=== PATIENT | female | born 1950 | race Caucasian/White ===

== ENCOUNTER 2022-12-31 09:03 | Day surgery (SDC) | payer MEDICARE, OTHER, SELFPAY ==
[2022-12-24 10:54] VITALS: BMI 27.2
--- NOTE | 2022-12-28 07:47 | MHC.SHP ---
Pre-Procedural Eval Section A Date of Service: 12/28/22 The patient is an INPATIENT: No Changes since office visit: No Cold of Flu in the past 2 weeks, No New Medical Problems, No Changes in Medication and No Patient answered all questions The History & Physical has been completed within 30 days and I have reviewed it.: Yes Section B Chief Complaint: Age-related nuclear cataract, right eye Allergies: Allergies Allergy/AdvReac Type Severity Reaction Status Date / Time No Known Allergies Allergy Verified 12/24/22 10:46 Plan Diagnosis/Plan: Unchanged I have reviewed the history and physical and performed a pertinent physical examination on my patient. No changes have occurred unless specified. Time Spent With Patient Time: Total time managing care of this patient today ____ minutes.
[2022-12-31 09:27] VITALS: BP 154/78; PULSE 83; RESP 18; TEMP 36.7; O2SAT 97
[2022-12-31] MEDS: Lactated Ringers 500 ML 50 ML IVCONT (09:44)
[2022-12-31] MEDS: Tropicamide 1 % Ophth Sol 3 ML BTL 1 DROP EYE-RIGHT ×3 (09:45→09:51)
[2022-12-31] MEDS: Cyclopentolate 1 % Ophth Sol 2 ML DRPBTL 1 DROP EYE-RIGHT ×3 (09:45→09:51)
[2022-12-31] MEDS: Tetracaine HCl/PF 0.5% Oph Sol 4 ML DROPS 1 DROP EYE-RIGHT (09:45)
[2022-12-31] MEDS: Phenylephrine HCL 2.5% Oph SoL 2 ML BOTTLE 1 DROP EYE-RIGHT ×3 (09:45→09:51)
[2022-12-31] MEDS: Ketorolac Tromethamine 0.5% Op 5 ML DROPS 1 DROP EYE-RIGHT ×3 (09:45→09:51)
--- NOTE | 2022-12-31 09:58 | HO.ANESPROP2 ---
[facility] Past Medical History Medical History GERD (gastroesophageal reflux disease) HTN (hypertension) Functional capacity: uses cane/walker Surgical History Surgical History Hx of hysterectomy H/O colonoscopy History of Problems with Anesthesia: No Social History Social History Are you a primary regular senior care provider to a significant other at home: No Do you presently have visiting nurse or other home services: No Patient Tobacco Use Status: Never used Tobacco Use of substances other than those prescribed or required for medical reasons: No Have you been hit, kicked, punched, or otherwise hurt by someone within the past year? If so, by whom?: No Advance Directives: No Advance Directives Information Provided: Yes Advance Directives on File: No Recently lost weight without trying: No Eating poorly because of decreased appetite: No Nutrition Risks: No Nutritional Risk Patient : No : No Poor oral hygiene: No Meds Allergies Allergy/AdvReac Type Severity Reaction Status Date / Time No Known Allergies Allergy Verified 12/24/22 10:46 Active Medications: Current Medications Lactated Ringer's (Lr) 500 mls @ 50 mls/hr IVCONT .Q10H JUANA Last Admin: 12/31/22 09:44 Dose: 50 mls/hr Povidone Iodine (Povidone Iodine 5 % Ophth Soln 30 Ml Bottle) 1 appl EYE-RIGHT PREOP PRN PRN Reason: Pre-Op Surgical Implant Prophy Home Medications Medication Instructions Recorded Confirmed Last Taken Type Al hyd-Mg tr-alg ac-sod bicarb 80 1 tab PO DAILY PRN Heartburn 12/24/22 12/24/22 Unknown History mg-14.2 mg chewable tablet (Gaviscon) cranberry extract 650 mg capsule 650 mg PO DAILY 12/24/22 12/24/22 Unknown History enalapril 10 1 tab PO DAILY 12/24/22 12/24/22 Unknown History mg-hydrochlorothiazide 25 mg tablet multivitamin 1 tab PO DAILY 12/24/22 12/24/22 Unknown History omeprazole 20 mg tablet,delayed 20 mg PO DAILY PRN Heartburn 12/24/22 12/24/22 Unknown History release Exam Exam Date and Time: December 31, 2022 0958 Height,Weight and Vital Signs: Height 5 ft 8 in Weight 81.193 kg Last Vital Signs Temp 98.1 F 12/31/22 09:27 Pulse 83 12/31/22 09:27 Resp 18 12/31/22 09:27 BP 154/78 H 12/31/22 09:27 Pulse Ox 97 12/31/22 09:27 O2 Del Method Room Air 12/31/22 09:27 Airway Mallampati Class: III TM Dist: >3cm Neck ROM: Full Loose/Missing/Broken Teeth: No Heart: RRR Lungs: CTA Assessment and Plan Assessment Anesthesia Assessment: Anesthesia Plan Discussed and Chart Reviewed Final Anesthetic Review History of Problems with Anesthesia: No NPO: Yes ASA Class: II Final Preanesthetic Review: Meds/Allgs Chart Reviewed, Consent Obtained/Reviewed and Anes Risks/Benef Reviewed Patient Risk: Low Procedure Risk: Low Anesthetic Plan Anesthetic Plan: MAC: Disposition: Standard PACU
--- NOTE | 2022-12-31 12:16 | HO.PNOPHT ---
Ophthalmology Procedure Procedure Date of Service: 12/31/22 Ophthalmology Viscoelastic: Salvatore Perduet Dual Pack Pro Ophthalmology Lenses: DXR 7.5 Procedure Notes: PREOPERATIVE DIAGNOSIS: Decreased visual acuity right eye secondary to cataract POSTOPERATIVE DIAGNOSIS: Same PROCEDURE: Right cataract extraction with multifocal intraocular lens insertion SURGEON: Kristian Sandhu M.D. ANESTHESIA: Topical/MAC ESTIMATED BLOOD LOSS: None COMPLICATIONS: None After obtaining informed consent, the patient was brought to the operating room suite and placed in the supine position. After adequate sedation per anesthesia, topical drops of Tetracaine were given to the right eye. The eye was then prepped and draped in the usual sterile fashion. The operating room microscope was then positioned over the operative eye and a lid speculum placed. A paracentesis was created. Viscoelastic was then instilled into the anterior chamber. A three plane incision was then created temporally, utilizing a 2.85 mm keratome. Capsulotomy forceps were then utilized to create a circular tear capsulotomy. Hydrodissection and hydrodelineation were carried out until adequate mobilization of the nucleus occurred. Phacoemulsification was then utilized to remove the dense central nucleus followed by removal of the cortical material utilizing the automated aspiration irrigation unit. Viscoelastic was instilled into the posterior capsular bag followed by placement of a multifocal posterior chamber intraocular lens without difficulty. The residual Viscoelastic was then removed utilizing the automated IA machine. The wound was checked and found to be watertight. The patient tolerated the procedure well and the lid speculum was removed. Intracameral injection of Vigamox 0.1 mL followed by a subtenon injection of Kenalog-40 0.2 mL were administered. The patient will be seen in the a.m.
[2022-12-31 12:31] VITALS: BP 133/78; PULSE 86; RESP 20; TEMP 36.2; O2SAT 96
== END 2022-12-31 12:30 | disposition home or self-care (01) ==
PROVIDERS: PCP Family Medicine; Visit Provider Ophthalmology
PROC: (CPT 66984; principal; 2022-12-31 12:00)
DX: H25.11 Age-related nuclear cataract, right eye (principal); H52.4 Presbyopia; H40.013 Open angle with borderline findings, low risk, bilateral; H43.393 Other vitreous opacities, bilateral; H18.413 Arcus senilis, bilateral; H35.09 Other intraretinal microvascular abnormalities; I10 Essential (primary) hypertension; Z79.899 Other long term (current) drug therapy; Z87.891 Personal history of nicotine dependence
CPT/HCPCS: 66984; J2250; J3010; J3301; V2788

== ENCOUNTER 2023-01-14 06:59 | Day surgery (SDC) | payer MEDICARE, OTHER, SELFPAY ==
[2022-12-24 11:04] VITALS: BMI 27.2
--- NOTE | 2023-01-08 14:15 | P.CONAN_ITS ---
Documented by User: Kinjal Mckeon NP 01/08/23 14:16 HPI - Anesthesia Eval Consult details Narrative: 72yo F for Left Cataract Extraction IOL Insertion Medically optimized Right eye 12/31/2022: Fent 50, Midaz 1 PMFSH Past Medical History Medical History GERD (gastroesophageal reflux disease) HTN (hypertension) Surgical History Surgical History Hx of hysterectomy H/O colonoscopy History of Problems with Anesthesia: No Social History Are you a primary health care facilities inspector to a significant other at home: No Do you presently have visiting nurse or other home services: No Patient Tobacco Use Status: Never used Tobacco Use of substances other than those prescribed or required for medical reasons: No Have you been hit, kicked, punched, or otherwise hurt by someone within the past year? If so, by whom?: No Advance Directives: No Advance Directives Information Provided: Yes Advance Directives on File: No Recently lost weight without trying: No Eating poorly because of decreased appetite: No Nutrition Risks: No Nutritional Risk Patient : No : No Poor oral hygiene: No Meds Allergies Allergy/AdvReac Type Severity Reaction Status Date / Time No Known Allergies Allergy Verified 01/14/23 08:21 Home Medications Medication Instructions Recorded Confirmed Last Taken Type Al hyd-Mg tr-alg ac-sod bicarb 80 1 tab PO DAILY PRN Heartburn 12/24/22 12/24/22 Unknown History mg-14.2 mg chewable tablet (Gaviscon) cranberry extract 650 mg capsule 650 mg PO DAILY 12/24/22 12/24/22 Unknown History enalapril 10 1 tab PO DAILY 12/24/22 12/24/22 Unknown History mg-hydrochlorothiazide 25 mg tablet multivitamin 1 tab PO DAILY 12/24/22 12/24/22 Unknown History omeprazole 20 mg tablet,delayed 20 mg PO DAILY PRN Heartburn 12/24/22 12/24/22 Unknown History release Exam Height,Weight and Vital Signs: Height 5 ft 8 in Weight 81.193 kg Assessment and Plan Assessment Anesthesia Assessment: Chart Reviewed Final Anesthetic Review History of Problems with Anesthesia: No Documented by User: Harsha Joseph MD 01/14/23 08:56 PMF Past Medical History Medical History GERD (gastroesophageal reflux disease) HTN (hypertension) Family History Family history of problems with anesthesia: No Surgical History Surgical History Hx of hysterectomy H/O colonoscopy Social History Are you a primary health care facilities inspector to a significant other at home: No Do you presently have visiting nurse or other home services: No Patient Tobacco Use Status: Never used Tobacco Use of substances other than those prescribed or required for medical reasons: No Have you been hit, kicked, punched, or otherwise hurt by someone within the past year? If so, by whom?: No Advance Directives: No Advance Directives Information Provided: Yes Advance Directives on File: No Recently lost weight without trying: No Eating poorly because of decreased appetite: No Nutrition Risks: No Nutritional Risk Patient : No : No Poor oral hygiene: No Meds Allergies Allergy/AdvReac Type Severity Reaction Status Date / Time No Known Allergies Allergy Verified 01/14/23 08:21 Home Medications Medication Instructions Recorded Confirmed Last Taken Type Al hyd-Mg tr-alg ac-sod bicarb 80 1 tab PO DAILY PRN Heartburn 12/24/22 12/24/22 Unknown History mg-14.2 mg chewable tablet (Gaviscon) cranberry extract 650 mg capsule 650 mg PO DAILY 12/24/22 12/24/22 Unknown History enalapril 10 1 tab PO DAILY 12/24/22 12/24/22 Unknown History mg-hydrochlorothiazide 25 mg tablet multivitamin 1 tab PO DAILY 12/24/22 12/24/22 Unknown History omeprazole 20 mg tablet,delayed 20 mg PO DAILY PRN Heartburn 12/24/22 12/24/22 Unknown History release Exam Airway Mallampati Class: II TM Dist: >3cm Neck ROM: Limited Heart: cta Lungs: rrr Assessment and Plan Assessment Anesthesia Assessment: Anesthesia Plan Discussed Final Anesthetic Review Family History of Problems with Anesthesia: No NPO: Yes ASA Class: II Final Preanesthetic Review: No Changes in Pt Med Stat, Consent Obtained/Reviewed and Anes Risks/Benef Reviewed Patient Risk: Intermediate Procedure Risk: Low Anesthetic Plan Anesthetic Plan: MAC: and Agree w/ Assess. and Plan Disposition: Standard PACU
[2023-01-14 08:20] VITALS: BP 147/83; PULSE 75; RESP 16; TEMP 36.3; O2SAT 95
--- NOTE | 2023-01-14 09:11 | HO.PNOPHT ---
Ophthalmology Procedure Procedure Date of Service: 01/14/23 Ophthalmology Viscoelastic: Healon Duet Dual Pack Pro Ophthalmology Lenses: TECNIS ZXR00 (8) Procedure Notes: PREOPERATIVE DIAGNOSIS: Decreased visual acuity left eye secondary to cataract POSTOPERATIVE DIAGNOSIS: Same PROCEDURE: Left cataract extraction with multifocal intraocular lens insertion SURGEON: Kristian Sandhu M.D. ANESTHESIA: Topical/MAC ESTIMATED BLOOD LOSS: None COMPLICATIONS: None After obtaining informed consent, the patient was brought to the operation room suite and placed in the supine position. After adequate sedation per anesthesia, topical drops of Tetracaine were given to the left eye. The eye was then prepped and draped in the usual sterile fashion. The operating room microscope was then positioned over the operative eye and a lid speculum placed. A paracentesis was created. Viscoelastic was then instilled into the anterior chamber. A three plane incision was then created temporally, utilizing a 2.85 mm keratome. Capsulotomy forceps were then utilized to create a circular tear capsulotomy. Hydrodissection and hydrodelineation were carried out until adequate mobilization of the nucleus occurred. Phacoemulsification was then utilized to remove the dense central nucleus followed by removal of the cortical material utilizing the automated aspiration irrigation unit. Viscoelastic was instilled into the posterior capsular bag followed by placement of a multifocal posterior chamber intraocular lens without difficulty. The residual Viscoelastic was then removed utilizing the automated IA machine. The wound was check and found to be watertight. The patient tolerated the procedure well and the lid speculum was removed. Intracameral injection of Vigamox 0.1 mL followed by a subtenon injection of Kenalog-40 0.2 mL were administered. The patient will be seen in the a.m.
[2023-01-14 09:35] VITALS: BP 141/72; PULSE 67; RESP 18; TEMP 36.1; O2SAT 96
== END 2023-01-14 09:49 | disposition home or self-care (01) ==
PROVIDERS: PCP Family Medicine; Visit Provider Ophthalmology
PROC: (CPT 66984; principal; 2023-01-14 09:10)
DX: H25.12 Age-related nuclear cataract, left eye (principal); H52.4 Presbyopia; H40.013 Open angle with borderline findings, low risk, bilateral; H43.393 Other vitreous opacities, bilateral; H18.413 Arcus senilis, bilateral; H35.09 Other intraretinal microvascular abnormalities; I10 Essential (primary) hypertension; Z79.899 Other long term (current) drug therapy; Z87.891 Personal history of nicotine dependence
CPT/HCPCS: 66984; J3010; J3301; V2788